=== PATIENT | male | born 1975 | race Caucasian/White ===

== ENCOUNTER 2018-03-13 08:57 | Inpatient (IN) ==
[2018-03-13] MEDS ORDERED: Sodium Chloride 0.9% 1,000 ML PRIMARY IV ONE (09:17)
[2018-03-13] MEDS ORDERED: NORMAL SALINE 10 ML SYRINGE FLUSH IVP PRN ×2 (09:17→12:47)
[2018-03-13] MEDS ORDERED: Belladon/PHENobarbital Elixir 10 ML, Lidocaine Viscous Liquid 2% 15 ML, Mag Hyd/Al Hyd/... PO ONE ×3 (09:23)
[2018-03-13 09:33] LABS: BASOPHILS # (AUTO) 0.02 10*3/UL; BASOPHILS % (AUTO) 0.1 % (0-1); EOSINOPHILS # (AUTO) 0.08 10*3/UL; EOSINOPHILS % (AUTO) 0.5 % (0-8); Hematocrit [HCT] 43.4 % (42.0-52.0); Hemoglobin [HGB] 15.9 g/dL (14.0-18.0); LYMPHOCYTES # (AUTO) 3.15 10*3/uL; MEAN CORPUSCULAR HEMOGLOBIN 33.3 PG (27-31); MEAN CORPUSCULAR HGB CONC 36.6 g/dL (33-37); MEAN PLATELET VOLUME 10.2 FL (7.4-12.2); MONOCYTES % (AUTO) 11.1 % (5-15); NEUTROPHILS # (AUTO) 11.15 10*3/UL; NEUTROPHILS % (AUTO) 68.7 % (50-80); RED BLOOD COUNT 4.77 10^6/uL (4.70-6.10)
[2018-03-13 09:40] LABS: BLOOD UREA NITROGEN 9 mg/dL (7-22); BUN/CREATININE RATIO 11.25 (6-20); LIPASE 36 IU/L (23-300); SERUM ALBUMIN 4.6 g/dL (3.5-4.8)
[2018-03-13 09:46] LABS: PLATELET MORPHOLOGY COMMENT NORMAL MORPHOLOGY (NORM); RBC MORPHOLOGY COMMENT SEE COMMENTS (NORM); WBC MORPHOLOGY COMMENT NORMAL MORPHOLOGY (NORM)
[2018-03-13 10:00] LABS: BILIRUBIN,URINE NEGATIVE (NEG); CLARITY,URINE CLEAR (CLEAR); COLOR,URINE YELLOW (Y); GLUCOSE, URINE (UA) 100 mg/dL (NEG); OCCULT BLOOD,URINE NEGATIVE (NEG); PROTEIN,URINE NEGATIVE (NEG); UROBILINOGEN,URINE 0.2 EU/dL (0.2)
[2018-03-13 10:05] LABS: URINE SAMPLE TYPE CLEAN CATCH URINE; WBC,URINE 0-1
[2018-03-13] MEDS ORDERED: HYDROmorphone 2 MG/1 ML IVP ONE (10:16)
--- NOTE | 2018-03-13 10:58 | DI ---
EXAM: CT ABDOMEN PELVIS WITH CONTRAST INDICATION: Abdominal pain TECHNIQUE: Multiple, contiguous 3 mm axial cuts of the abdomen and pelvis are obtained from the lung bases to the ischial tuberosities. Intravenous contrast administered. Sagittal and coronal reformatted images are available. COMPARISON: Lumbar spine radiograph 11/01/13 FINDINGS: Lung bases are clear. Liver: Fatty liver otherwise liver is unremarkable.. Spleen: spleen is unremarkable. Pancreas: pancreas is unremarkable. Gallbladder: Gallbladder is unremarkable by CT exam. Adrenal glands: adrenal glands are unremarkable. Kidneys: kidneys are unremarkable. No urinary tract stones or hydronephrosis or perinephric inflammatory changes. GI tract: There is diverticulosis of the sigmoid and distal descending colon. Pericolonic inflammatory changes adjacent to the proximal sigmoid with some colonic wall thickening. There is mild adjacent free fluid. No abscess or free air. No bowel obstruction. Appendix: Appendix normal caliber. Urinary bladder: urinary bladder is unremarkable. Abdominal aorta: Abdominal aorta normal caliber. Retroperitoneum. No adenopathy. Osseous structures: No acute osseous abnormality. Postsurgical changes of posterior pedicle screw and luis miguel fusion from L4-S1 with laminectomy at L5. There is grade 1 anterolisthesis of L5 relative to S1 with degenerative disc space narrowing at L5/S1 and mild degree at L3/L4. IMPRESSION: 1. Diverticulitis of the proximal sigmoid. Small amount of adjacent free fluid. No free air or abscess or bowel obstruction. 2. Postsurgical changes of posterior pedicle screw and luis miguel fusion from L4-S1 with laminectomy at L5. Stable grade 1 anterolisthesis L5 relative to S1 with degenerative changes lumbar spine. No acute osseous abnormality. 3. Fatty liver.
--- NOTE | 2018-03-13 12:27 | PDOC ---
HPI - History of Present Illness History of Present Illness: This very nice 43-year-old gentleman who was in his usual state of health until last night after dinner he started having lower abdominal pain this morning that things did not get any better and decided to come in the ER where CT scan revealed and diagnosed with the diverticulitis without perforation. The patient is a heavy smoker and a half packs to 2 packs a day and admits to drinking 2 shots of whiskey every night he takes no other medication denies any nausea vomiting or chest pain or shortness of breath Past Medical History Tobacco Use: Current Every Day Smoker In the Past 12 Months, Have Used or Abuse Any of the Following Substance: None Alcohol Use: Other (Daily 2 shots of whiskey at night) Medication / Allergies Home Medications: Home Medications 3 Medication Instructions Recorded Confirmed Type NK [NK] 03/13/18 03/13/18 History Allergies/Adverse Reactions: Allergies 3 Allergy/AdvReac Type Severity Reaction Status Date / Time No Known Allergies Allergy Verified 03/13/18 09:11 Review of Systems - Review of Systems All Systems: Reviewed & No Additional Complaints Except as Stated - Respiratory Respiratory: DENIES: Negative System Review, Cough, Sputum, Dyspnea At Rest, Dyspnea with Exertion, Pleuritic Pain, Hemoptysis, Wheezing, Other, See HPI - Cardiovascular Cardiovascular: DENIES: Negative System Review, Chest Pain, Edema, Syncope, Palpitations, Orthopnea, Paroxysmal Nocturnal Dyspnea, Other, See HPI - Gastrointestinal Gastrointestinal / Abdominal: REPORTS: Abdominal Pain Exam - Vitals Vital Signs: Vital Signs Temperature 98.1 F Temperature Source Temporal Artery Scan Pulse Rate [Pulse Oximeter 111 Left] Respiratory Rate 18 Blood Pressure [Left Arm] 147/95 Pulse Ox 97 Oxygen Delivery Method Room Air Height 5 ft 8 in Weight 175 lb - General General Appearance: No Acute Distress, Cooperative - Head Head Exam: Normal Inspection, Normocephalic, Atraumatic - Eye Eye Exam: POSITIVE: Normal Appearance, PERRL, EOMI, No Scleral Icterus - Neck Neck Exam: Normal Inspection, Full ROM, No Tenderness, No Lymphadenopathy, No Thyromegaly, JVP is not Raised - Respiratory Respiratory Exam: POSITIVE: Clear to Auscultation - Bilaterally, Breathing Non Labored, Normal To Percussion, Normal to Percussion and Palpation - Cardiovascular Cardiovascular Exam: POSITIVE: RRR, No Murmur, No Clicks, No Gallops, No Rubs, PMI Non-Displaced - GI/Abdominal Additional GI/Abdominal Exam Details: Some tenderness under umbilical area no guarding or rebound Results - Labs CBC and BMP: 03/13/18 09:10 03/13/18 09:10 Assessment and Plan - Patient Problems (1) Diverticulitis Current Visit: Yes Status: Acute Comment: clear liquid diet,iv abx ,iv fluids to discuss case with Dr. cande Jasso he would review the CT scans formerly treat pain with IVdilaudid labs in the morning Code(s): K57.92 - Diverticulitis of intestine, part unspecified, without perforation or abscess without bleeding
[2018-03-13] MEDS ORDERED: HYDROcodone/IBUPROFEN 7.5 MG/200 MG TABLET PO PRN (12:47)
[2018-03-13] MEDS ORDERED: ONDANSETRON 4 MG/2 ML VIAL IVP PRN (12:47)
[2018-03-13] MEDS ORDERED: LORazepam 2 MG/1 ML VIAL IVP PRN (12:47)
[2018-03-13] MEDS ORDERED: LIDOCAINE W/ SODIUM BICARB 0.5 ML SYR SUBD PRN (12:47)
[2018-03-13] MEDS ORDERED: KETOROLAC 15 MG/1 ML VIAL IVP PRN (12:47)
[2018-03-13] MEDS ORDERED: CALCIUM CARBONATE 500 MG (TUMS) CHEWABLE TABLET PO PRN (12:47)
[2018-03-13] MEDS: Ertapenem Inj 1 GM in Sodium Chloride 0.9% 100 ML IV SCH (13:41)
[2018-03-13] MEDS: NICOTINE 21 MG /DAY PATCH TRANSDERM SCH (13:42)
[2018-03-13] MEDS: Lactated Ringers 1,000 ML PRIMARY IV SCH ×2 (13:42→22:55)
--- NOTE | 2018-03-13 13:50 | PDOC ---
Abdomen/Flank HPI - General Chief Complaint: Abdomen Pain Stated Complaint: abdominal pain Date Seen by Provider: 03/13/18 Time Seen by Provider: 09:05 Source: POSITIVE: Patient, Spouse Exam Limitations: POSITIVE: No limitations Nurse's Notes Reviewed & Considered: Yes - History of Present Illness Initial Comments: The patient is a 43-year-old male who presents to the emergency room with his . Patient states that for the past 24 hours he has had bilateral lower abdominal pain and is felt "bloated". He last ate approximately 24 hours [employer]. He's not had any known fevers. No nausea, vomiting, diarrhea, melena, hematochezia, hematemesis, dysuria or hematuria. He's not had any previous abdominal surgery. He has had a lumbar fusion and operative repair of a fractured left clavicle. Body Location Affected: REPORTS: Abdomen Timing: REPORTS: Gradual, Getting Worse Duration: <24 hours (Approximately 24 hours) Severity: Moderate Quality: REPORTS: "Pain" Abdominal Pain Onset Location: REPORTS: RLQ, LLQ Abdominal Pain Radiation: REPORTS: No radiation Context: REPORTS: None Modifying Factors: improves with: Palpation, Movement Associated Symptoms: REPORTS: Denies symptoms Similar Symptoms Previously: No Recent Care Received: REPORTS: Denies Any Prior Injuries Related to Current Complaint?: No - Patient Home Medications Home Medications: Home Medications NK [NK] 03/13/18 - Patient Allergies Allergies/Adverse Reactions: Allergies 3 Allergy/AdvReac Type Severity Reaction Status Date / Time No Known Allergies Allergy Verified 03/13/18 09:11 Past Medical History - heen HEENT History: Denies History Cardiovascular History: Denies History Respiratory History: Denies History Gastrointestinal History: Denies History Genitourinary History: Denies History Endocrine History: Denies History Musculoskeletal History: Other (please comment) Prosthesis or Implant: Yes Additional Musculoskeletal History: left clavicle plate and screws. lumbar fusion Neurological History: Denies History Blood Disorders: Denies History Psychiatric History: Denies History History of Sexually Transmitted Diseases: No Male Reproductive History: Denies History Cancer History: Denies History In Past Year Been Physically Harmed or Verbally Threatened: No History of MDRO: No History of Other Communicable Diseases: No Tobacco Use: Current Every Day Smoker Type of alcohol normally used: Hard Liquor In the Past 12 Months, Have Used or Abuse Any Substance: None Previous Surgical History: Yes Significant Family History: No pertinent family hx Past Medical History Reviewed: Reviewed - No Changes ROS - Limitations ROS Limitations: No Limitations Constitution: REPORTS: Denies Symptoms Cardiovascular: REPORTS: Denies Cardiac Symptoms Respiratory: REPORTS: Denies Resp Symptoms Neurological: REPORTS: Denies Neuro Symptoms Gastrointestinal: REPORTS: Abdominal Pain Endocrine: REPORTS: Denies Symptoms Musculoskeletal: REPORTS: Denies MS Symptoms Genitourinary: REPORTS: Denies Symptoms Eyes: REPORTS: Denies Symptoms ENT: REPORTS: Denies Symptoms Skin: REPORTS: Denies Skin Symptoms Lympathic: REPORTS: Denies Lympathic Symptoms Immunologic: POSITIVE: Denies Symptoms Psychiatric: POSITIVE: Denies Psych Symptoms Abdominal/Flank Pain PE - General Appearance General Appearance: POSITIVE: Alert, Cooperative, No Acute Distress, No Evidence of Trauma - HEENT HEENT: POSITIVE: Head Inspection Nml, Eyes Inspection Nml, Ears Inspection Nml, Nose Inspection Nml, Oral/Dental Inspect. Nml, Pharynx Inspect. Nml, PERRL, EOMI - Neck Neck: POSITIVE: Normal Inspection, No Apparent Injury - Respiratory Respiratory: POSITIVE: No Respiratory Distress, Breath Sounds Normal, Chest Non- Tender - Cardiovascular Cardiovascular: POSITIVE: Regular Rate and Rhythm, Heart Sounds Normal, Equal Pulses, Strong Pulses Peripheral Pulses: Radial (R): 2+, Radial (L): 2+ - Chest Chest: POSITIVE: Non Tender - Abdomen Abdomen: Soft: (All Quadrants), Denies Tenderness: (RUQ), (LUQ), No Splenomegaly : (All Quadrants), No Hepatomegaly: (All Quadrants), No Guarding: (All Quadrants ), No Rebound: (RUQ), (LUQ), No Palpable Pulse: (All Quadrants), No Palpabale Mass: (All Quadrants), No Distention: (All Quadrants), No Rigidity: (All Quadrants), Tenderness Noted: (RLQ), (LLQ), Absent Bowel Sounds: (All Quadrants) , Rebound: (RLQ), (LLQ) Additional Abdominal Details: Abdominal examination shows no bowel sounds audible. Patient complains of pain on direct palpation over the right and left lower abdomen, with rebound these areas. No masses, no organomegaly. - Back Back: POSITIVE: Normal Inspection. NEGATIVE: CVA Tenderness (R), CVA Tenderness (L) - Skin Skin: POSITIVE: Intact, Normal For Race, Warm, Dry, No Rash - Extremities Extremity: Non-Tender: (All Extremities), Normal ROM: (All Extremities), Normal Inspection: (All Extremities) - Neurological Neurological: POSITIVE: Affect Apporpriate, Oriented X3, car dumper Normal As Tested, Motor Normal, Sensation Normal - Psychological Psychiatric: POSITIVE: Affect Appropriate, Mood Appropriate Images - Complete Complete: 1 - Pain on palpation Abdomen Progress - Results Reviewed by me Xrays/CTs/US Reviewed by me: Yes Discussed with Radiologist: Yes Radiology Findings: CT scan abdomen and pelvis with IV contrast shows sigmoid diverticulitis; appendix reportedly normal. Lab Results Reviewed by Me: Yes (urinalysis normal) CBC and BMP: 03/13/18 09:10 03/13/18 09:10 - Patient's Progress Pain Medication Addressed: POSITIVE: Yes (Dilaudid 2 mg IV with some pain relief ) School/Work Release Addressed: POSITIVE: Not Applicable Re-examine Time: 11:25 Re-Examine Comment: Diagnosis of diverticulitis discussed with patient and his . Discussed case with Dr. Porter, hospitalist, patient admitted by Dr. Porter for further evaluation and treatment. Status: POSITIVE: Unchanged, Re-Examined - Consult Consult (If Yes, Name of Consulting MD & Time Called): Yes (Dr. Porter, hospitalist, [phone]) Consulting MD will see pt:: POSITIVE: [facility] [place] Admit Counseled: POSITIVE: Patient, Family, RE: Lab Results, RE: Radiology Results, RE : DX, RE: Need for F/U Patient Care Time - Estimated PCT Patient Care Time (In Minutes): 60 Vital Signs - Recent Vital Signs Vital Signs: Vital Signs (Last 8 hours) Temp Pulse Pulse Resp BP BP Pulse Ox 03/13/18 13:00 97.7 F 79 18 127/84 94 03/13/18 12:40 99 F 80 16 133/89 94 03/13/18 09:02 98.1 F 111 H 18 147/95 97 03/13/18 08:59 97.0 F 111 H 18 147/95 98 - VS Reviewed Vital Signs Reviewed: Yes Discharge Clinical Impression: Abdominal pain, Diverticulitis Discharge Disposition: Admit to Inpatient Condition: Fair Date Decision to Admit to Inpatient: 03/13/18 Time Decision to Admit to Inpatient: 11:20
[2018-03-14 05:05] LABS: Hemoglobin [HGB] 13.6 g/dL (14.0-18.0); MEAN CORPUSCULAR HEMOGLOBIN 31.6 PG (27-31); MEAN PLATELET VOLUME 9.9 FL (7.4-12.2)
[2018-03-14 05:11] LABS: BLOOD UREA NITROGEN 7 mg/dL (7-22); BUN/CREATININE RATIO 8.75 (6-20)
[2018-03-14 05:36] LABS: PLATELET MORPHOLOGY COMMENT NORMAL MORPHOLOGY (NORM); RBC MORPHOLOGY COMMENT NORMAL MORPHOLOGY (NORM)
[2018-03-14 05:37] LABS: BAND NEUTROPHILS % 0 % (0-10); BASOPHILS % (MANUAL) 0 % (0-1); EOSINOPHILS % (MANUAL) 0 % (0-8); MONOCYTES % (MANUAL) 4 % (0-12); NEUTROPHILS % (MANUAL) 74 % (50-80); WBC MORPHOLOGY COMMENT SEE COMMENTS (NORM)
[2018-03-14] MEDS: Lactated Ringers 1,000 ML PRIMARY IV SCH (07:03)
[2018-03-14 07:43] VITALS: RESP 18
--- NOTE | 2018-03-14 10:31 | PDOC(PROG) ---
Interval History: Doing a little better still some abdominal pain but less than yesterday Objective : Data - Labs CBC and BMP: 03/14/18 04:39 03/14/18 04:39 Objective : Exam - General General Appearance: No Acute Distress, Cooperative - Respiratory Respiratory Exam: Clear to Auscultation - Bilaterally, Breathing Non Labored, Normal To Percussion, Normal to Percussion and Palpation - Cardiovascular Cardiovascular Exam: RRR, No Murmur, No Clicks, No Gallops, No Rubs, PMI Non- Displaced - GI/Abdominal Additional GI/Abdominal Exam Details: Mild tenderness left lower quadrant but improved since yesterday no guarding or rebound - Extremities Extremities Exam: Normal Capillary Refill, No Clubbing Present, No Edema Present Assessment and Plan - Patient Problems (1) Diverticulitis Current Visit: Yes Status: Acute Comment: Improving white count down to 12,000 patient really would like to go home I advised against it if tomorrow the white count is normal we will put him on oral antibiotics and a bland diet and may be able to be discharged home he agrees discussed with nursing in the room as well Code(s): K57.92 - Diverticulitis of intestine, part unspecified, without perforation or abscess without bleeding
[2018-03-14 11:26] VITALS: BP 130/77; TEMP 98.2; O2SAT 92
[2018-03-14] MEDS: Ertapenem Inj 1 GM in Sodium Chloride 0.9% 100 ML IV SCH (12:51)
[2018-03-14] MEDS ORDERED: Patch Removal PATCH TRANSDERM SCH (13:00)
[2018-03-14] MEDS: NICOTINE 21 MG /DAY PATCH TRANSDERM SCH (13:56)
--- NOTE | 2018-03-14 15:22 | DCSUMMARY ---
Hospitalization Summary Hospital Course: Final Discharge Diagnosis: Current Visit Problems Problem Status Onset Code Diverticulitis Acute K57.92 Abdominal pain Acute R10.9 Diagnostic Data, Laboratory Data, and Procedures of Signifigance: Laboratory Results 03/14/18 03/14/18 Range/Units 04:39 04:39 WBC 12.71 H (4.8-10.8) 10^3/uL RBC 4.30 L (4.70-6.10) 10^6/uL Hgb 13.6 L (14.0-18.0) g/dL Hct 40.0 L (42.0-52.0) % MCV 93.0 H (80-90) FL MCH 31.6 H (27-31) PG MCHC 34.0 (33-37) g/dL RDW Std Deviation 43.4 (39-50) fL RDW Coeff of [place] 13.1 (11.5-14.5) % Plt Count 196 (140-350) 10*3/uL MPV 9.9 (7.4-12.2) FL Neutrophils % (Manual) 74 (50-80) % Band Neutrophils % 0 (0-10) % Lymphocytes % (Manual) 22 (10-50) % Monocytes % (Manual) 4 (0-12) % Eosinophils % (Manual) 0 (0-8) % Basophils % (Manual) 0 (0-1) % Metamyelocytes % Not Reportable Myelocytes % Not Reportable Promyelocytes % Not Reportable Blast Cells Not Reportable WBC Morphology Comment See comments (NORM) Plt Morphology Comment Normal morphology (NORM) RBC Morph Comment Normal morphology (NORM) Sodium 141 (135-145) meq/L Potassium 4.0 (3.8-5.2) meq/L Chloride 105 (98-112) meq/L Carbon Dioxide 27 (23-33) meq/L Anion Gap 9 (5-20) BUN 7 (7-22) mg/dL Creatinine 0.8 (0.70-1.50) mg/dL Estimated GFR > 60 (>60 ml/min/1.73m(2)) BUN/Creatinine Ratio 8.75 (6-20) Glucose 102 (78-110) mg/dL Calculated Osmolality 289.0 (267-292) mOsm/kg Calcium 8.6 L (8.7-10.7) mg/dL History and Physical pertinent to Admission: Course of Hospitalization: This very nice 43-year-old gentleman who comes in with the abdominal pain diagnosed with diverticulitis on CAT scan no perforation or abscess. He is a heavy smoker and also drinks to 2 shots of whiskey he says. He feels much better today and the pain is almost resolved and he is pushing very hard to be discharged home. He states to go home on Y I told the patient is not recommended since he still has a white count of 12,000 and will need more IV X if the oral antibiotics don't work could develop an abscess improved which could result in or more or more procedures patient understood this morning when I talked to him. This morning he had agreed to stay at this afternoon he has decided he is going to leave. He also had the lunch and tolerated well with no pain he states. I also discussed the case with Dr. cande Jasso and the hemoglobin on Augmentin 875 twice a day for the next 2 days he did receive his second dose of Invanz On the date of discharge, the patient was examined: Please see my note of this morning for physical exam Vitals reviewed and are listed below Vital Signs (24 hrs) Temp Pulse Resp BP Pulse Ox 03/14/18 11:23 98.2 F 72 18 130/77 92 03/14/18 07:42 97.6 F 75 18 131/80 93 03/14/18 07:00 75 03/14/18 05:05 90 03/14/18 04:41 97.7 F 107 H 22 122/75 90 03/14/18 01:00 97.8 F 72 24 107/62 92 03/13/18 21:00 96.8 F 74 16 132/86 96 03/13/18 19:00 82 03/13/18 16:25 97.1 F 79 16 124/79 94 Assessment and Plan: 1. As per discharge assessments above 2. Disposition: Patient demanded to be discharged home 3. Condition on discharge, stable and improved. 4. Diet: Low fiber as recommended by general surgery diet 5. Activities: No alcohol 6. Follow-Up: 1. [PCP] 2. Dr. cande Jasso was made 7. Medications at the Time of Discharge: Home Medications 3 Medication Instructions Recorded Confirmed Type Amoxicill/Clav 875/125mg 1 ea PO BID #16 tab 03/14/18 Rx [Augmentin 875/125mg] 8. Time, care, counseling and coordination of care for this discharge is greater than 30 minutes. Was instructed by Tiffany KRISHNANsenior quality engineer care that patient does not meet inpatient criteria and should be made observation because he did not receive any IV narcotics in the hospital. He did receive Dilaudid in the emergency room and IV Toradol on the floor. And IV antibiotics in the form of Invanz 2 doses Exam - Vitals Vital Signs: Vital Signs Temperature 98.2 F Temperature Source Temporal Artery Scan Pulse Rate [Pulse Oximeter 72 Left] Pulse Rate 80 Respiratory Rate 18 Blood Pressure [Left Arm] 130/77 Blood Pressure 133/89 Pulse Ox 92 Oxygen Delivery Method Room Air Height 5 ft 8 in Weight 175 lb 12.8 oz Patient Problems - Patient Problem List (1) Diverticulitis Current Visit: Yes Status: Acute Code(s): K57.92 - Diverticulitis of intestine, part unspecified, without perforation or abscess without bleeding Category: Medical
== END 2018-03-14 15:39 | disposition home or self-care (01) | DRG 392 ==
LOC: ER 08:57 → MED/SURG 12:35
PROVIDERS: ADMIT Internal Medicine; ATTEND Internal Medicine